=== PATIENT | male | born 1950 | race Caucasian/White ===

== ENCOUNTER 2018-10-14 13:50 | Emergency (ER) | payer MEDICARE, BC ==
[2018-10-14] MEDS ORDERED: Colchicine 0.6 MG TAB ONE (14:23)
== END 2018-10-14 14:37 | disposition home or self-care (01) ==
LOC: MADERS 13:50
DX: M10.9 Gout, unspecified (principal); J44.9 Chronic obstructive pulmonary disease, unspecified; Z87.891 Personal history of nicotine dependence; F03.90 Unspecified dementia, unspecified severity, without behavioral disturbance, psychotic disturbance, mood disturbance, and anxiety; Z79.899 Other long term (current) drug therapy
CPT/HCPCS: 99283